=== PATIENT | male | born 2000 | race Caucasian/White ===

== ENCOUNTER 2021-12-06 08:54 | Emergency (ER) | payer SELFPAY ==
[2021-12-06 09:52] LABS: HEMOGLOBIN 17.4 gm/dl (14.0-17.5); RED BLOOD COUNT 5.59 M/UL (4.20-5.50); WHITE BLOOD COUNT 9.8 K/UL (4.5-11.0)
[2021-12-06 10:22] LABS: BUN/CREATININE RATIO 14 (0-10)
[2021-12-06] MEDS ORDERED: ZOFRAN 4 MG TAB4 MG PO (14:05)
== END 2021-12-06 14:20 | disposition home or self-care (01) ==
LOC: ER1 08:54
PROVIDERS: Emergency Medicine
DX: R10.9 Unspecified abdominal pain (principal); L98.6 Other infiltrative disorders of the skin and subcutaneous tissue; F17.200 Nicotine dependence, unspecified, uncomplicated
CPT/HCPCS: 71045; 80053; 81001; 82550; 82553; 83605; 83690; 84484; 85025; 85379; 87040; 93005; 96374; 96375; 99284; J2270; J2405; Q9967